=== PATIENT | female | born 1985 | race Caucasian/White ===

== ENCOUNTER 2018-08-30 08:39 | Emergency (ER) | payer SELFPAY ==
--- OUTSIDE RECORDS SUMMARY | 2018-08-30 08:41 | XMS REPORT ---
:1985 Author Organization eClinicalWorks Care Team Providers Name Role Phone Michelle Calderon Provider Role Unavailable Allergies, Adverse Reactions, Alerts Substance Reaction Event Type Cipro Info Not Available Drug Allergy Problems Problem Type Condition Code Onset Dates Condition Status Problem Pelvic pain R10.2 Active Problem Encounter for gynecological Z01.419 Active examination without abnormal finding Problem Colitis K52.9 Active Assessment Colitis K52.9 Active Problem Dyspareunia in female N94.10 Active Assessment Pelvic pain R10.2 Active Medications Medication Code Code Instructions Start End Status Dosage System Date Date Gabapentin [facility] [address]-91 300 MG Orally Active 1 tablet (Once-Daily) Once a day with the evening meal Meloxicam [facility] 35067310429 7.5 MG Orally Active 1 tablet Once a day Levothyroxine [facility] [address]-30 Active not Sodium defined Results No Known Results Summary Purpose eClinicalWorks Submission
--- NOTE | 2018-08-30 10:44 | RAD REPORT ---
EXAM DESCRIPTION: RAD - Chest Single View - 08/30/2018 10:35 am CLINICAL HISTORY: CHEST PAIN Chest pain. COMPARISON: No comparisons FINDINGS: Portable technique limits examination quality. The lungs are grossly clear. The heart is normal in size. No displaced fractures. IMPRESSION: No acute intrathoracic process suspected.
[2018-08-30 10:45] LABS: Urine Blood NEGATIVE (NEG); Urine Glucose NEGATIVE (NEG); Urine Protein NEGATIVE (NEG); Urine Specific Gravity 1.015 (1.005-1.030); Urine pH 6.5 (5.0-7.0)
[2018-08-30 10:57] LABS: Absolute Lymphocytes (CBC) 2.6 K/uL (0.7-4.9); Absolute Monocytes 0.4 K/uL (0.1-1.3); Absolute Neutrophil 5.5 K/uL (1.8-8.0); Basophils % 0.6 % (0-1.3); Eosinophils % 0.7 % (0-4.4); Hematocrit 40.5 % (36.0-45.0); Lymphocytes % 30.5 % (15.3-44.8); MPV 8.8 fL (7.6-11.3); Monocytes % 4.8 % (3.3-12.3); RBC Red Blood Cell Count 4.71 M/uL (3.86-4.86)
[2018-08-30 11:03] LABS: Protime INR 0.92
[2018-08-30 11:22] LABS: ALT/SGPT 19 U/L (12-78); AST/SGOT 14 U/L (15-37); Albumin 3.9 g/dL (3.4-5.0); Alkaline Phosphatase 62 U/L (45-117); BUN Blood Urea Nitrogen 8 mg/dL (7-18); Bicarbonate 27 mmol/L (21-32); Bilirubin Direct < 0.1 mg/dL (0-0.2); Bilirubin Total 0.3 mg/dL (0.2-1.0); Glucose Level 114 mg/dL (74-106); Magnesium 2.2 mg/dL (1.8-2.4); NT PRO-BNP 64 pg/mL (<125); Potassium 3.8 mmol/L (3.5-5.1); Protein, Total 7.7 g/dL (6.4-8.2); Sodium Level 143 mmol/L (136-145); Troponin (Emerg Dept Use Only) < 0.02 ng/mL (0.0-0.045)
[2018-08-30 11:30] LABS: Thyroid Stimulating Hormone 6.82 uIU/mL (0.360-3.740)
--- NOTE | 2018-08-30 12:19 | EKG ---
Test Date: 2018-08-30 Test Time: 09:00:17 Manager Business Operations: LORETA MEASUREMENT RESULTS: Intervals: Rate: 57 MO: 138 QRSD: 76 QT: 438 QTc: 426 [place]: P: 33 MO: 138 QRS: 74 T: 50 INTERPRETIVE STATEMENTS: Sinus bradycardia Otherwise normal ECG No previous ECG available for comparison Electronically Signed On 08-30-18 12:18:13 CDT by Ousmane Loredo
--- NOTE | 2018-08-30 12:43 | ER ---
Nurse's Notes [facility] Name: Fannie Olguin Age: 33 yrs Sex: Female : 1985 Arrival Date: 08/30/2018 Time: 08:40 Bed 13 Private MD: Unknown, Unknown Diagnosis: Hypothyroidism, unspecified;Chest pain, unspecified Presentation: 08/30 08:58 Presenting complaint: Patient states: Intermittent CP and chest tightness with ss dizziness that began " a few months ago". Pt states, "The other day I was so swollen and I couldn't get my ring off, and I feel like i'm always struggling to breath." Pt reports a history of a PE. Transition of care: patient was not received from another setting of care. Onset of symptoms was June 2018. Risk Assessment: Do you want to hurt yourself or someone else? Patient reports no desire to harm self or others. Initial Sepsis Screen: Does the patient meet any 2 criteria? No. Patient's initial sepsis screen is negative. Does the patient have a suspected source of infection? No. Patient's initial sepsis screen is negative. Care prior to arrival: None. 08:58 Method Of Arrival: Ambulatory ss 08:58 Acuity: CHRISTOPHER 3 ss Triage Assessment: 10:06 General: Appears in no apparent distress. comfortable, Behavior is calm, cooperative, ph appropriate for age. Pain: Denies pain. Cardiovascular: Capillary refill < 3 seconds Chest pain quality is pressure. Respiratory: Airway is patent Trachea midline Respiratory effort is even, unlabored, Respiratory pattern is regular. Derm: Skin is intact, is healthy with good turgor, Skin is dry, Skin is pink, warm \\T\\ dry. Skin temperature is warm. Musculoskeletal: Circulation, motion, and sensation intact. Capillary refill < 3 seconds. 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 - Social history:: Smoking status: Patient/guardian denies using tobacco. - Ebola Screening: : Patient denies exposure to infectious person Patient denies travel to an Ebola-affected area in the 21 days before illness onset. Screenin:06 Abuse screen: Denies threats or abuse. Nutritional screening: No deficits noted. ph Tuberculosis screening: No symptoms or risk factors identified. Fall Risk None identified. Assessment: 11:24 Reassessment: Patient appears in no apparent distress at this time. Patient and/or ph family updated on plan of care and expected duration. Pain level reassessed. Patient is alert, oriented x 3, equal unlabored respirations, skin warm/dry/pink. 12:30 Reassessment: Patient appears in no apparent distress at this time. Patient and/or ph family updated on plan of care and expected duration. Pain level reassessed. Patient is alert, oriented x 3, equal unlabored respirations, skin warm/dry/pink. 13:00 Reassessment: Pt not in room when attempting to give d/c papers, IV d/c by pt and on ph bedside table, appears to be intact. Vital Signs: 09:02 BP 116 / 86; Pulse 58; Resp 16; Temp 98.1(O); Pulse Ox 99% on R/A; Weight 79.38 kg; ss Height 5 ft. 9 in. (175.26 cm); Pain 2/10; 10:04 BP 114 / 79; Pulse 70; Resp 17; Pulse Ox 100% on R/A; ph 10:51 BP 117 / 78; Pulse 68; Resp 18; Pulse Ox 100% on R/A; ph 11:24 BP 107 / 79; Pulse 55; Resp 18; Pulse Ox 98% on R/A; ph 09:02 Body Mass Index 25.84 (79.38 kg, 175.26 cm) Vitals: 11:24 Cardiac Rhythm Assessment Sinus rhythm. ph ED Course: 08:40 Patient arrived in ED. dl4 08:40 Unknown, Unknown is Private Physician. dl4 08:41 Al[facility] Foster [facility]C [facility]. kb 08:41 Gurpreet Best MD is Attending Physician. kb 09:01 Triage completed. ss 09:02 Arm band placed on right wrist. ss 09:03 EKG done, by industrial tech instructor. reviewed by Gurpreet Best MD. at1 09:54 Mary Lou Peters, RN is Primary Nurse. ph 10:09 Patient maintains SpO2 saturation greater than 95% on room air. ph 10:09 Bed in low position. Call light in reach. ph 10:11 Pulse ox on. NIBP on. ph 10:34 X-ray completed. Portable x-ray completed in exam room. Patient tolerated procedure jb2 well. 10:35 XRAY Chest (1 view) In Process Unspecified. EDMS 10:42 Initial lab(s) drawn, by me, sent to lab. Inserted saline lock: 22 gauge in left dh3 forearm, using aseptic technique. Blood collected. 10:49 Missed attempt(s): 22 gauge in right forearm. Inserted saline lock: 22 gauge in left ph wrist, using aseptic technique. Blood collected. 13:12 No provider procedures requiring assistance completed. IV discontinued, intact, d/c by ph pt. Administered Medications: No medications were administered Outcome: 12:43 Discharge ordered by . kb 13:12 Patient left the ED. ph 13:12 Discharged to home ph 13:12 Condition: stable 13:12 Discharge instructions given to left before receiving papers Signatures: Dispatcher [employer] EDMS Alma Foster, EXECUTIVE DIRECTOR OF MARKETING-C EXECUTIVE DIRECTOR OF MARKETING-Ckb Jay Olson jb2 Jocelyn Dunn, TAE STRONG Kathy Junior, pharmacy account director EKG Tat1 Mary Lou Peters, TAE [place] [id number] Rebel Garcia dl4
--- NOTE | 2018-08-30 12:43 | EDPHYS ---
Physician Documentation [facility] Name: Fannie Olguin Age: 33 yrs Sex: Female : 1985 Arrival Date: 08/30/2018 Time: 08:40 Bed 13 Private MD: Unknown, Unknown ED Physician Gurpreet Best HPI: 08/30 10:00 This 33 yrs old Female presents to ER via Ambulatory with complaints of Chest kb Pain, Dizziness. 10:00 The patient or guardian reports chest pain that is located primarily in the chest kb diffusely. The pain does not radiate. Associated signs and symptoms: Pertinent positives: dizziness, shortness of breath. The chest pain is described as a pressure. Duration: The patient or guardian reports multiple episodes, that wax and wane. Modifying factors: the symptoms are aggravated by yelling at her kids. Severity of pain: At its worst the pain was moderate in the emergency department the pain has improved. The patient has not experienced similar symptoms in the past. The patient has not recently seen a physician. Pt reports chest pressure with intermittent shortness of breath and dizziness that started months ago. States symptoms get worse when she is yelling at her kids and gets better after she calms herself down. 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 - Social history:: Smoking status: Patient/guardian denies using tobacco. - Ebola Screening: : Patient denies exposure to infectious person Patient denies travel to an Ebola-affected area in the 21 days before illness onset. ROS: 09:59 Constitutional: Negative for fever, chills, and weight loss, ENT: Negative for injury, kb pain, and discharge, Neck: Negative for injury, pain, and swelling, Abdomen/GI: Negative for abdominal pain, nausea, vomiting, diarrhea, and constipation, Back: Negative for injury and pain, : Negative for injury, bleeding, discharge, and swelling, MS/Extremity: Negative for injury and deformity, Skin: Negative for injury, rash, and discoloration. 09:59 Cardiovascular: Positive for chest pain, Negative for edema, orthopnea, palpitations, paroxysmal nocturnal dyspnea. 09:59 Respiratory: Positive for shortness of breath. 10:02 Neuro: Positive for dizziness. kb Exam: 09:59 Constitutional: This is a well developed, well nourished patient who is awake, alert, kb and in no acute distress. Head/Face: Normocephalic, atraumatic. ENT: Nares patent. No nasal discharge, no septal abnormalities noted. Tympanic membranes are normal and external auditory canals are clear. Oropharynx with no redness, swelling, or masses, exudates, or evidence of obstruction, uvula midline. Mucous membranes moist. Neck: Trachea midline, no thyromegaly or masses palpated, and no cervical lymphadenopathy. Supple, full range of motion without nuchal rigidity, or vertebral point tenderness. No Meningismus. Chest/axilla: Normal chest wall appearance and motion. Nontender with no deformity. No lesions are appreciated. Cardiovascular: Regular rate and rhythm with a normal S1 and S2. No gallops, murmurs, or rubs. Normal PMI, no JVD. No pulse deficits. Respiratory: Lungs have equal breath sounds bilaterally, clear to auscultation and percussion. No rales, rhonchi or wheezes noted. No increased work of breathing, no retractions or nasal flaring. Abdomen/GI: Soft, non-tender, with normal bowel sounds. No distension or tympany. No guarding or rebound. No evidence of tenderness throughout. Skin: Warm, dry with normal turgor. Normal color with no rashes, no lesions, and no evidence of cellulitis. MS/ Extremity: Pulses equal, no cyanosis. Neurovascular intact. Full, normal range of motion. Neuro: Awake and alert, GCS 15, oriented to person, place, time, and situation. Cranial nerves II-XII grossly intact. Motor strength 5/5 in all extremities. Sensory grossly intact. Cerebellar exam normal. Normal gait. Vital Signs: 09:02 BP 116 / 86; Pulse 58; Resp 16; Temp 98.1(O); Pulse Ox 99% on R/A; Weight 79.38 kg; ss Height 5 ft. 9 in. (175.26 cm); Pain 2/10; 10:04 BP 114 / 79; Pulse 70; Resp 17; Pulse Ox 100% on R/A; ph 10:51 BP 117 / 78; Pulse 68; Resp 18; Pulse Ox 100% on R/A; ph 11:24 BP 107 / 79; Pulse 55; Resp 18; Pulse Ox 98% on R/A; ph 09:02 Body Mass Index 25.84 (79.38 kg, 175.26 cm) ss MDM: 09:46 Patient medically screened. kb 09:59 Data reviewed: vital signs, nurses notes. Data interpreted: Pulse oximetry: on room air kb is 99 %. Interpretation: normal. 12:42 Counseling: I had a detailed discussion with the patient and/or guardian regarding: the kb historical points, exam findings, and any diagnostic results supporting the discharge/admit diagnosis, lab results, radiology results, the need for outpatient follow up, a family practitioner, to return to the emergency department if symptoms worsen or persist or if there are any questions or concerns that arise at home. 08/30 09:46 Order name: Basic Metabolic Panel; Complete Time: 11:23 kb 08/30 09:46 Order name: CBC with Diff; Complete Time: 11:01 kb 08/30 09:46 Order name: LFT's; Complete Time: 11:23 kb 08/30 09:46 Order name: Magnesium; Complete Time: 11:23 kb 08/30 09:46 Order name: NT PRO-BNP; Complete Time: 11:23 kb 08/30 09:46 Order name: PT-INR; Complete Time: 11:09 kb 08/30 09:46 Order name: Troponin (emerg Dept Use Only); Complete Time: 11:23 kb 08/30 09:46 Order name: XRAY Chest (1 view); Complete Time: 10:46 kb 08/30 09:46 Order name: EKG; Complete Time: 09:47 kb 08/30 09:46 Order name: D-Dimer; Complete Time: 11:09 kb 08/30 09:57 Order name: TSH; Complete Time: 11:45 kb 08/30 10:22 Order name: Urine Dipstick--Ancillary (enter results); Complete Time: 10:46 bd 08/30 10:22 Order name: Urine --Ancillary (enter results); Complete Time: 10:46 bd 08/30 11:31 Order name: T4 Free; Complete Time: 11:45 EDMS 08/30 09:46 Order name: Cardiac monitoring; Complete Time: 10:46 kb 08/30 09:46 Order name: EKG - Nurse/Tech; Complete Time: 11:26 kb 08/30 09:46 Order name: IV Saline Lock; Complete Time: 10:44 kb 08/30 09:46 Order name: Labs collected and sent; Complete Time: 10:44 kb 08/30 09:46 Order name: O2 Per Protocol; Complete Time: 10:44 kb 08/30 09:46 Order name: O2 Sat Monitoring; Complete Time: 10:44 kb Administered Medications: No medications were administered Disposition: 15:07 Co-signature as Attending Physician, Gurpreet Best MD I agree with the assessment and [facility] plan of care. Disposition: 08/30/18 12:43 Discharged to Home. Impression: Hypothyroidism, unspecified, Chest pain, unspecified. - Condition is Stable. - Discharge Instructions: Hypothyroidism, Nonspecific Chest Pain, [id number]. - Medication Reconciliation Form, Thank You Letter, Antibiotic Education, Prescription Opioid Use form. - Follow up: Emergency Department; When: As needed; Reason: Worsening of condition. Follow up: Private Physician; When: 2 - 3 days; Reason: Recheck today's complaints, Continuance of care, Re-evaluation by your physician. Signatures: Dispatcher [employer] [facility] Alma Foster, BRISA PABON-Gurpreet Sykes MD MD cha Smirch, Shelby, RN RN Mary Lou Sigala RN RN ph Corrections: (The following items were deleted from the chart) 10:02 09:59 Constitutional: Negative for fever, chills, and weight loss, ENT: Negative for kb injury, pain, and discharge, Neck: Negative for injury, pain, and swelling, Abdomen/GI: Negative for abdominal pain, nausea, vomiting, diarrhea, and constipation, Back: Negative for injury and pain, : Negative for injury, bleeding, discharge, and swelling, MS/Extremity: Negative for injury and deformity, Skin: Negative for injury, rash, and discoloration, Neuro: Negative for headache, weakness, numbness, tingling, and seizure, kb 13:12 12:43 08/30/2018 12:43 Discharged to Home. Impression: Hypothyroidism, unspecified; ph Chest pain, unspecified. Condition is Stable. Forms are Medication Reconciliation Form, Thank You Letter, Antibiotic Education, Prescription Opioid Use. Follow up: Emergency Department; When: As needed; Reason: Worsening of condition. Follow up: Private Physician; When: 2 - 3 days; Reason: Recheck today's complaints, Continuance of care, Re-evaluation by your physician. kb
== END 2018-08-30 13:12 | disposition home or self-care (01) ==
LOC: ER 08:39
DX: E03.9 Hypothyroidism, unspecified (principal); R07.9 Chest pain, unspecified; R42 Dizziness and giddiness; Z88.1 Allergy status to other antibiotic agents; Z88.5 Allergy status to narcotic agent
CPT/HCPCS: 36415; 71045; 80048; 80076; 81003; 81025; 83735; 83880; 84439; 84443; 84484; 85025; 85379; 85610; 93005; 99284

== ENCOUNTER 2019-11-25 09:05 | Emergency (ER) | payer SELFPAY ==
--- NOTE | 2019-11-25 10:34 | RAD REPORT ---
EXAM DESCRIPTION: RAD - Foot Right 3 View - 11/25/2019 10:25 am CLINICAL HISTORY: PAIN COMPARISON: No comparisons FINDINGS: Mild soft tissue swelling affects the fourth toe. No fracture seen. No radiopaque body.
--- NOTE | 2019-11-25 10:40 | ER ---
Nurse's Notes [facility] Name: Fannie Olguin Age: 34 yrs Sex: Female : 1985 Arrival Date: 11/25/2019 Time: 09:12 Bed 5 Private MD: Diagnosis: Puncture wound without foreign body of foot;Local infection of the skin and subcutaneous tissue, unspecified Presentation: 11/24 09:25 Chief complaint: Patient states: was working on shed about 2 weeks ago and had a metal em pole almost go through the right foot, pt reports yellow scab and had taken 3 days worth of antibiotics, denies fever. Coronavirus screen: Proceed with normal triage. Patient denies a cough. Patient denies shortness of breath or difficulty breathing. Patient denies measured and/or subjective temperature greater than 100.4F prior to today's visit. Patient denies travel on a cruise ship or to a country the [facility] currently lists as an affected area. Patient denies contact with known and/or suspected case of COVID-19. Ebola Screen: Patient negative for fever greater than or equal to 101.5 degrees Fahrenheit, and additional compatible Ebola Virus Disease symptoms Patient denies exposure to infectious person. Patient denies travel to an Ebola-affected area in the 21 days before illness onset. No symptoms or risks identified at this time. Initial Sepsis Screen: Does the patient meet any 2 criteria? No. Patient's initial sepsis screen is negative. Does the patient have a suspected source of infection? Yes: Skin breakdown/wound. Risk Assessment: Do you want to hurt yourself or someone else? Patient reports no desire to harm self or others. Onset of symptoms was November 12, 2019. 09:25 Method Of Arrival: Ambulatory em Acuity: CHRISTOPHER 4 em PROCESS TECH: 09:28 LMP 11/05/2019 em Historical: - Allergies: : Cipro; em : Codeine; em - Home Meds: levothyroxine 150 mcg tab 1 tab once daily [Active]; em - PMHx: : bulging disc; thyroid disease; em - PSHx: : ; Tubal ligation; em - Immunization history:: Adult Immunizations not up to date. - Social history:: Smoking status: Patient denies any tobacco usage or history of. Screenin:29 Abuse screen: Denies threats or abuse. Nutritional screening: No deficits noted. em Tuberculosis screening: No symptoms or risk factors identified. Fall Risk None identified. Assessment: 09:25 General: Appears in no apparent distress. comfortable, Behavior is calm, cooperative, em appropriate for age, Denies fever. Pain: Complains of pain in right fourth toe Pain currently is 10 out of 10 on a pain scale. Neuro: Level of Consciousness is awake, alert, obeys commands, Oriented to person, place, time, situation, Appropriate for age. Cardiovascular: Capillary refill < 3 seconds Patient's skin is warm and dry. Respiratory: Airway is patent Respiratory effort is even, unlabored, Respiratory pattern is regular, symmetrical. Derm: Skin is intact, is healthy with good turgor, scab noted to right foot, no swelling or redness noted Skin is pink, warm \T\ dry. Musculoskeletal: Capillary refill < 3 seconds, Range of motion: intact in all extremities, Swelling absent. 10:30 Reassessment: Patient appears in no apparent distress at this time. Patient and/or em family updated on plan of care and expected duration. Pain level reassessed. Patient is alert, oriented x 3, equal unlabored respirations, skin warm/dry/pink. Vital Signs: 09:25 BP 124 / 89; Pulse 68; Resp 16; Temp 97.6; Pulse Ox 100% on R/A; Weight 74.84 kg; em Height 5 ft. 9 in. (175.26 cm); Pain 10/10; 10:45 BP 102 / 76; Pulse 64; Resp 18; Pulse Ox 100% on R/A; em 09:25 Body Mass Index 24.37 (74.84 kg, 175.26 cm) em ED Course: 09:12 Patient arrived in ED. ag5 09:19 Adarsh Nassar, TAE is Primary Nurse. em 09:24 Alma Foster FNP-C is PHCP. kb 09:24 Herbert Bucio MD is Attending Physician. kb 09:27 Triage completed. em 09:28 Arm band placed on. em 09:29 Patient has correct armband on for positive identification. Bed in low position. Call em light in reach. Pulse ox on. NIBP on. 10:24 Foot Right 3 View XRAY In Process Unspecified. EDMS 10:52 No provider procedures requiring assistance completed. Patient did not have IV access em during this emergency room visit. Administered Medications: No medications were administered Outcome: 10:39 Discharge ordered by . иван 10:52 Discharged to home ambulatory. em 10:52 Condition: good 10:52 Discharge instructions given to patient, Instructed on discharge instructions, follow up and referral plans. medication usage, Demonstrated understanding of instructions, follow-up care, medications, Prescriptions given X 1. 10:53 Patient left the ED. em Signatures: Dispatcher [employer] EDAlma Crabtree, MATERIALS INTERN-C MATERIALS INTERN-Adarsh Raya, RN RN Padma Lowe ag5
--- NOTE | 2019-11-25 10:40 | EDPHYS ---
Physician Documentation [facility] Name: Fannie Olguin Age: 34 yrs Sex: Female : 1985 Arrival Date: 11/25/2019 Time: 09:12 Bed 5 Private MD: ED Physician Hrebert Bucio HPI: 11/24 10:35 This 34 yrs old Female presents to ER via Ambulatory with complaints of kb Puncture Wound To Foot, Wound Infection. 10:35 The patient presents with an injury, pain, that is acute, swelling, tenderness. The kb patient has not experienced similar symptoms in the past. The patient has not recently seen a physician. 10:36 The complaints affect the right fourth toe. Context: The problem was sustained at home, kb resulted from piece of metal punctured foot, the patient can fully bear weight, the patient is able to ambulate. Onset: The symptoms/episode began/occurred 2 week(s) ago. Modifying factors: The symptoms are alleviated by nothing, the symptoms are aggravated by nothing. Associated signs and symptoms: Pertinent positives: swelling, Pertinent negatives: calf tenderness, fever, nausea, numbness, rash, tingling, vomiting, warmth, weakness. Severity of symptoms: At their worst the symptoms were moderate, in the emergency department the symptoms are unchanged. Pt reports a piece of metal punctured right foot 2 weeks ago, took 3 days of zithromax for infection, but still having pain and swelling. 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 - Social history:: Smoking status: Patient denies any tobacco usage or history of. ROS: 10:38 Constitutional: Negative for fever, chills, and weight loss, Cardiovascular: Negative kb for chest pain, palpitations, and edema, Respiratory: Negative for shortness of breath, cough, wheezing, and pleuritic chest pain, Abdomen/GI: Negative for abdominal pain, nausea, vomiting, diarrhea, and constipation, Back: Negative for injury and pain, Neuro: Negative for headache, weakness, numbness, tingling, and seizure. 10:38 MS/extremity: Positive for injury or acute deformity, pain, swelling, tenderness, of the right fourth toe. Exam: 10:38 Constitutional: This is a well developed, well nourished patient who is awake, alert, kb and in no acute distress. Head/Face: Normocephalic, atraumatic. Chest/axilla: Normal chest wall appearance and motion. Nontender with no deformity. No lesions are appreciated. Cardiovascular: Regular rate and rhythm with a normal S1 and S2. No gallops, murmurs, or rubs. Normal PMI, no JVD. No pulse deficits. Respiratory: Lungs have equal breath sounds bilaterally, clear to auscultation and percussion. No rales, rhonchi or wheezes noted. No increased work of breathing, no retractions or nasal flaring. Abdomen/GI: Soft, non-tender, with normal bowel sounds. No distension or tympany. No guarding or rebound. No evidence of tenderness throughout. MS/ Extremity: Pulses equal, no cyanosis. Neurovascular intact. Full, normal range of motion. Neuro: Awake and alert, GCS 15, oriented to person, place, time, and situation. Cranial nerves II-XII grossly intact. Motor strength 5/5 in all extremities. Sensory grossly intact. Cerebellar exam normal. Normal gait. 10:38 Skin: injury, puncture wound with scab to right forth toe, slight swelling to area. . Vital Signs: 09:25 BP 124 / 89; Pulse 68; Resp 16; Temp 97.6; Pulse Ox 100% on R/A; Weight 74.84 kg; em Height 5 ft. 9 in. (175.26 cm); Pain 10/10; 10:45 BP 102 / 76; Pulse 64; Resp 18; Pulse Ox 100% on R/A; em 09:25 Body Mass Index 24.37 (74.84 kg, 175.26 cm) em MDM: 09:25 Patient medically screened. kb 10:35 Data reviewed: vital signs, nurses notes. Data interpreted: Pulse oximetry: on room air kb is 100 %. Interpretation: normal. Counseling: I had a detailed discussion with the patient and/or guardian regarding: the historical points, exam findings, and any diagnostic results supporting the discharge/admit diagnosis, radiology results, the need for outpatient follow up, a family practitioner, to return to the emergency department if symptoms worsen or persist or if there are any questions or concerns that arise at home. 11/24 09:46 Order name: Foot Right 3 View XRAY; Complete Time: 10:35 kb Administered Medications: No medications were administered Disposition: 15:34 Co-signature as Attending Physician, Herbert Bucio MD I agree with the assessment and kdr plan of care. Disposition: 11/25/19 10:39 Discharged to Home. Impression: Puncture wound without foreign body of foot, Local infection of the skin and subcutaneous tissue, unspecified. - Condition is Stable. - Discharge Instructions: Puncture Wound, [id number], Wound Infection, [id number]. - Prescriptions for Keflex 500 mg Oral Capsule - take 1 capsule by ORAL route every 8 hours for 7 days; 21 capsule. - Medication Reconciliation Form, Thank You Letter, Antibiotic Education, Prescription Opioid Use form. - Follow up: Emergency Department; When: As needed; Reason: Worsening of condition. Follow up: Private Physician; When: 2 - 3 days; Reason: Recheck today's complaints, Continuance of care, Re-evaluation by your physician. Signatures: Dispatcher [employer] EDMS Alma Foster, CRYSTALLOGRAPHER-C CRYSTALLOGRAPHER-Ckb Herbert Bucio MD MD [facility] Adarsh Nassar RN RN em Corrections: (The following items were deleted from the chart) 10:39 10:39 11/25/2019 10:39 Discharged to Home. Impression: Puncture wound without foreign kb body of foot; Local infection of the skin and subcutaneous tissue, unspecified. Condition is Stable. Forms are Medication Reconciliation Form, Thank You Letter, Antibiotic Education, Prescription Opioid Use. kb 10:53 10:39 11/25/2019 10:39 Discharged to Home. Impression: Puncture wound without foreign em body of foot; Local infection of the skin and subcutaneous tissue, unspecified. Condition is Stable. Forms are Medication Reconciliation Form, Thank You Letter, Antibiotic Education, Prescription Opioid Use. Follow up: Emergency Department; When: As needed; Reason: Worsening of condition. Follow up: Private Physician; When: 2 - 3 days; Reason: Recheck today's complaints, Continuance of care, Re-evaluation by your physician. kb
[2019-11-25 12:31] VITALS: TEMP 97.6; O2SAT 100
[2019-11-25 12:32] VITALS: BP 102/76
== END 2019-11-25 10:53 | disposition home or self-care (01) ==
LOC: ER 09:05
DX: S91.331A Puncture wound without foreign body, right foot, initial encounter (principal); L08.9 Local infection of the skin and subcutaneous tissue, unspecified; W26.9XXA Contact with unspecified sharp object(s), initial encounter; Y93.9 Activity, unspecified; Y92.017 Garden or yard in single-family (private) house as the place of occurrence of the external cause
CPT/HCPCS: 99283